=== PATIENT | female | born 1955 | race African-American/Black ===

== ENCOUNTER 2020-01-06 06:09 | Outpatient (REF) | payer MEDICARE, SELFPAY | END 2020-01-06 06:10 | disposition home or self-care (01) | LOC: HO.LAB 06:09 | PROVIDERS: Visit Provider Internal Medicine | DX: Z20.828 Contact with and (suspected) exposure to other viral communicable diseases (principal) | CPT/HCPCS: C9803; U0003 ==

== ENCOUNTER 2020-03-14 14:50 | Outpatient (REF) | payer MEDICARE, SELFPAY | END 2020-03-14 14:51 | disposition home or self-care (01) | LOC: HO.LAB 14:50 | PROVIDERS: Visit Provider Internal Medicine | DX: Z20.822 Contact with and (suspected) exposure to COVID-19 (principal) | CPT/HCPCS: 36415; C9803; U0003 ==

== ENCOUNTER 2020-04-20 07:35 | Outpatient (REF) | payer MEDICARE, SELFPAY | END 2020-04-20 07:36 | disposition home or self-care (01) | LOC: HO.LAB 07:35 | PROVIDERS: Visit Provider Internal Medicine | DX: Z20.822 Contact with and (suspected) exposure to COVID-19 (principal) | CPT/HCPCS: 36415; C9803; U0003; U0005 ==